=== PATIENT | female | born 1980 | race Caucasian/White ===

== ENCOUNTER 2018-07-26 09:41 | Inpatient (IN) | payer MEDICAID ==
[~2018-07-26] VITALS: Ht 149.9 cm; Wt 76.8 kg
[2018-07-26] MEDS ORDERED: PREN1TAB71 PO (09:49)
[2018-07-26 09:51] VITALS: Ht 149.9 cm; Wt 76.8 kg
--- NOTE | 2018-07-26 11:52 | TRIAGE ---
OB Triage Datetime Report Generated by CPN: 07/26/2018 11:52 Datetime: 07/26/2018 11:48 Stage of : OB Triage Datetime: 07/26/2018 11:18 Stage of : OB Triage Labor Evaluation Frequency: 1-4 Monitor Mode: External Duration (sec)2399: 30-50 Pattern: Normal: <= 5 Contractions in 10 Minutes Resting Tone [place]: Relaxed Heart Rate FHR Baseline Rate: 140 Monitor Mode: External US Variability: Moderate 6-25 bpm Accelerations: 15X15 Decelerations: None Category: Category I Pain Presence: None/Denies Pain Type: N/A Datetime: 07/26/2018 10:55 Comments: BACK ON MONITOR Datetime: 07/26/2018 10:28 Comments: US AT BEDSIDE Datetime: 07/26/2018 10:00 Vaginal Exam Dilatation (cms): 3.0 Effacement (%): 80 Station: -2 Exam By: SMicheline ALBERTO Datetime: 07/26/2018 09:55 Stage of : OB Triage Assessment Type: Triage Maternal Assessment Level of Consciousness: Fully Conscious DTR's/Clonus: DTRs 2+; No Clonus Headache: Denies Blurred Vision: No Respiratory Effort: Unlabored; Regular Rhythm; Equal Expansion Breath Sounds, Left: Clear and Equal Breath Sounds, Right: Clear and Equal Nausea/Vomiting: Denies RUQ Epigastric Pain: Denies Lower Extremities Edema: None Degree: None Upper Extremities Edema: None Degree: None Facial Edema: None Temperature Route: Oral Fall Risk Assessment History of Falling: (0) No Secondary Diagnosis: (0) No Ambulatory Aid: (0) Bedrest/Nurse Assist IV Therapy: (0) No Gait: (0) Normal/Bedrest/Immobile Mental Status: (0) Oriented to Own Ability Fall Score: 0 Fall Risk Score Definition: No Risk: No action required Monitor Mode: External Monitor Mode: External US Pain Assessment Pain Scale: 0 Pain Presence: None/Denies Pain Type: N/A Datetime: 07/26/2018 09:53 Time of Arrival: 07/26/2018 09:40 EGA: 40.1 Arrived By: Ambulatory Arrived From: Home Chief Complaint: CAME WITH ORDERS NST BPP Movement: Present Contractions: Denies/Absent Rupture of Membranes: Denies Vaginal Bleeding: None Vaginal Discharge: Denies Recent Sexual Intercouse: Denies Abdominal Trauma: Not Applicable Patient Complaints: None Time Provider Notified: 07/26/2018 11:45 Provider Notified: dr. bahena Initial Plan: NST, BPP, HAIM POWERE
[2018-07-26] MEDS ORDERED: BUTORPHANOL 2 MG INJ IV PRN ×2 (12:00)
[2018-07-26] MEDS ORDERED: OXYTOCIN 30 UNITS/LR 500 ML IV SCH ×3 (12:00)
[2018-07-26] MEDS ORDERED: OXYTOCIN 30 UNITS/LR 500 ML IV PRN (12:00)
[2018-07-26] MEDS ORDERED: METHYLERGONOVINE 0.2 MG INJ IM PRN (12:00)
[2018-07-26] MEDS ORDERED: MISOPROSTOL 200 MCG TAB PR PRN (12:00)
[2018-07-26] MEDS ORDERED: LIDOCAINE 1% (MPF) 30 ML INJ INJ PRN (12:00)
[2018-07-26] MEDS ORDERED: CARBOPROST 250 MCG INJ IM PRN (12:00)
--- NOTE | 2018-07-26 12:24 | HP ---
Date/Time of Note Date/Time of Note DATE: 07/26/18 TIME: 12:20 OB - History Hx of Present Free Text/Dictation Patient is a 37-year-old 2 para 1 at 40 weeks and 1 day of gestation with estimated date of delivery July 25, 2018 Patient presents for NST and BPP for postdates She reports positive movement, denies any vaginal bleeding or leaking fluid She reports positive uterine contractions GBS status is negative Estimated Due Date: July 25, 2018 : 2 Para: 1 Care: None Obstetrical Complications: None Medical Complications: None Past Family/Social History * Past Medical, Surgical, Family and Obstetric Histories reviewed from chart. OB Admission Exam Vital Signs Vital Signs Vital Signs Date Temp Pulse Resp B/P (MAP) Pulse Ox O2 O2 Flow FiO2 Time Delivery Rate 07/26/18 Room Air 09:51 Physical Exam HEENT: WNL Heart: Rhythm Normal Lungs: Clear, Equal Abdomen: WNL Extremities: Normal Reflexes: Normal Cervical Dilatation: 3cm Effacement: 75% Station: -2 Membranes: Intact Heart Rate: 140's Accelerations: Accelerations Present Decelerations: No Decelerations Varibility: Moderate Contractions on Admission: < 5 Minutes Apart Intensity: Moderate Last 72 hours Lab Results Ordering MD: PAOT KNOX MD Location: [facility] Room/Bed: PROCEDURE: US OB biophysical profile. CLINICAL INDICATION: decreased movements, contractions TECHNIQUE: Multiple sonographic images of the pelvis were obtained. The images were reviewed on a PACS workstation. COMPARISON: No prior studies are available for comparison. FINDINGS: There is a single live intrauterine gestation. Cardiac activity is present with 144 beats per minute. There is a vertex presentation. The placenta is fundal. There is no evidence of placental abruption. SARAH = 6.3 cm. Biophysical profile: movement 2/2 tone 2/2. breathing 2/2 SARAH 2/2 Total 10/23 RPTAT: AA . IMPRESSION: Normal biophysical profile. Oligohydramnios. . .Rj Miller MD, Date Time Electronically viewed and signed by .Rj Miller MD, on 07/26/2018 11:20 .S/ CC: PATO KNOX [phone] PROCEDURE: US OB. CLINICAL INDICATION: Size and dates , contractions TECHNIQUE: Multiple sonographic images of the pelvis and gravid uterus were obtained. The images were reviewed on a PACS workstation. COMPARISON: No prior studies are available for comparison. FINDINGS: Gestation: Single live intrauterine gestation. Cardiac activity: 144 beats per minute. Presentation: Vertex. Placenta: Location: Fundal Appearance: No previa or abruption. Measurements: BPD = 9.0 cm, 36 weeks and 3 days HC = 31.8 cm, 35 weeks and 5 days AC = 36.1 cm, 40 weeks and 0 days FL = 7.6 cm, 38 weeks and 6 days Gestational Age: AUA estimated gestational age: 37 weeks 5 days LMP estimated gestational age: 40 weeks 1 day AUA estimated date of delivery: 08/11/18 The EFW = 3591 g, 45%ile based on LMP age. RPTAT: AA IMPRESSION: Single live intrauterine gestation of 37 weeks 5 days by ultrasound criteria. .Rj Miller MD, Date Time Electronically viewed and signed by .Rj Miller MD, on 07/26/2018 11:20 .S/ CC: PATO KNOX [phone] OB Assessment/Plan Reason for admission: active labor Induction Method: per Pitocin Protocol Other plan: Admit to labor and delivery Oxytocin augmentation Pain meds as needed Copies To: CC: PATO KNOX ; MATHIEU CASTELLANO MD July 26, 2018 12:24
[2018-07-26] MEDS: LACTATED RINGER'S 1,000 ML IV SCH ×2 (12:35→20:51)
[2018-07-27] MEDS ORDERED: OXYTOCIN 30 UNITS/LR 500 ML IV SCH (01:19)
[2018-07-27] MEDS ORDERED: LACTATED RINGER'S 1,000 ML IV* SCH (01:19)
[2018-07-27] MEDS ORDERED: MISOPROSTOL 200 MCG TAB PR PRN (01:30)
[2018-07-27] MEDS ORDERED: ACETAMINOPHEN 325 MG TAB PO PRN ×2 (01:30)
[2018-07-27] MEDS ORDERED: OXYTOCIN 30 UNITS/LR 500 ML IV PRN (01:30)
[2018-07-27] MEDS ORDERED: LANOLIN HPA 1 PKT TOP PRN (01:30)
[2018-07-27] MEDS ORDERED: BENZOCAINE 20% 56 ML SPRAY TOP PRN (01:30)
[2018-07-27] MEDS ORDERED: DIBUCAINE 1% 30 GM OINT TOP PRN (01:30)
[2018-07-27] MEDS ORDERED: SENNA/DOCUSATE NA (8.6MG/50MG) TAB PO PRN (01:30)
[2018-07-27] MEDS ORDERED: CARBOPROST 250 MCG INJ IM PRN (01:30)
[2018-07-27] MEDS ORDERED: MAGNESIUM HYDROXIDE 30ML CUP PO PRN (01:30)
[2018-07-27] MEDS ORDERED: CEFAZOLIN 2 GM/50 ML (PMX) 50 ML IVPB ONE (01:30)
[2018-07-27] MEDS ORDERED: WITCH HAZEL/GLYCERIN PAD PR PRN (01:30)
[2018-07-27] MEDS ORDERED: ONDANSETRON 4 MG INJ IV PRN (01:30)
[2018-07-27] MEDS ORDERED: METHYLERGONOVINE 0.2 MG INJ IM PRN (01:30)
[2018-07-27 02:45] VITALS: BP 126/64; PULSE 80; RESP 18
[2018-07-27] MEDS: LACTATED RINGER'S 1,000 ML IV SCH (03:46)
[2018-07-27 08:00] VITALS: BP 112/62; PULSE 94; RESP 18
--- NOTE | 2018-07-27 10:27 | PN ---
Date/Time of Note Date/Time of Note DATE: 07/27/18 TIME: 10:24 OB Subjective Subjective Subjective PPD# 0 Patient is doing well. She denies nausea, vomiting, shortness of breath, chest pain, headache. She has been ambulating without difficulty, tolerating regular diet. Pain is well controlled on current medications. She is complaining of pain on right inguinal area OB Objective Objective Objective VS - Last 72 Hours, by Label Date Temp Pulse Resp B/P (MAP) Pulse Ox O2 O2 Flow FiO2 Time Delivery Rate 07/27/18 98.9 80 18 126/64 Room Air 02:45 (84) 07/26/18 Room Air 09:51 General: AAO X 3, comfortable, NAD, appropriate mood and affect. ABD: +BS. Soft, non-tender. Uterus 2 cm below umbilicus Flank: No CVA tenderness (B/L) LE: Mild edema. No clubbing, cyanosis, thigh or calf tenderness (B/L). Homans 'sign is negative OB Assessment/Plan Other plan: 37 years old 2 para 2-0-0-2 s/p normal vaginal delivery at 40 weeks and 1 day. PPD#0 - AF, VSS - Baby is doing well, at bed side. She is bonding well - Contraception methods with R/B/A/FR discussed - Continue care - Right inguinal pain, could be positional. Observe her closely PATO KNOX July 27, 2018 10:27
[2018-07-27] MEDS: IBUPROFEN 600 MG TAB PO PRN ×2 (11:20→17:39)
--- NOTE | 2018-07-27 11:25 | LDN ---
Date/Time of Note Date/Time of Note DATE: 07/27/18 TIME: 11:24 Delivery Summary Weeks of Gestation Term gestation Placenta Delivered: Spontaneously Meconium: none Episiotomy: No Laceration repair: First-degree laceration repaired with 2-0 Vicryl suture Anesthesia type: Local Estimated blood loss: 400 Sponge & Needle done & correct: Yes All needle counts correct: Yes Any foreign bodies felt in the: No Delivery Information Sex Sex: female Apgars 1 Minute: 8 5 Minute: 9 Suctioning Nose & mouth suctioned at darvin: Yes Delee suction performed: No Umbilical Cord Umbilical cord with: 3 Vessels Cord presentations: no nuchal cord Cord Blood was obtained: Yes Mother & Baby Disposition Disposition Baby's weight 7 pounds 5 ounces/ 3330 g Patient received Cytotec 1000 mcg per rectum and Ancef 2 g IV x1 dose Copies To: CC: PATO KNOX BAHAREH MD July 27, 2018 11:25
[2018-07-27 12:00] VITALS: BP 110/60; PULSE 83; RESP 16
[2018-07-27 16:00] VITALS: BP 114/64; PULSE 84; RESP 19
[2018-07-27 20:30] VITALS: BP 109/57; PULSE 81; RESP 18
[2018-07-28] MEDS: IBUPROFEN 600 MG TAB PO PRN ×4 (00:28→23:41)
[2018-07-28 04:00] VITALS: BP 110/62; PULSE 70; RESP 17
[2018-07-28 08:00] VITALS: BP 106/57; PULSE 51; RESP 19
--- NOTE | 2018-07-28 15:47 | QN ---
Documentation Comment day #1 Status post Patient stable and afebrile Vital signs stable VS - Last 72 Hours, by Label Date Temp Pulse Resp B/P (MAP) Pulse Ox O2 O2 Flow FiO2 Time Delivery Rate 07/28/18 97.6 51 19 106/57 Room Air 08:00 (73) 07/28/18 98.0 70 17 110/62 Room Air 04:00 (78) 07/27/18 99.1 81 18 109/57 Room Air 20:30 (74) 07/27/18 98.5 84 19 114/64 Room Air 16:00 (81) 07/27/18 98.4 83 16 110/60 Room Air 12:00 (77) 07/27/18 99.3 94 18 112/62 Room Air 08:00 (79) 07/27/18 98.9 80 18 126/64 Room Air 02:45 (84) 07/26/18 Room Air 09:51 Hematology - 72 Hrs Test 07/26/18 12:40 07/28/18 07:26 Hematocrit 37.3 % (37.0-47.0) 32.1 % (37.0-47.0) L Hemoglobin 12.7 g/dl (12.0-16.0) 10.8 g/dl (12.0-16.0) L Mean Corpuscular 29.7 pg (29.0-33.0) 29.6 pg (29.0-33.0) Hemoglobin Mean Corpuscular 34.0 g/dl (32.0-37.0) 33.6 g/dl (32.0-37.0) Hemoglobin Concent Mean Corpuscular Volume 87.4 fl (82.0-101.0) 87.9 fl (82.0-101.0) Mean Platelet Volume 9.1 fl (7.4-10.4) 9.4 fl (7.4-10.4) Platelet Count 358 10^3/UL (140-415) 324 10^3/UL (140-415) Red Blood Count 4.27 10^6/ul (4.20-5.40) 3.65 10^6/ul (4.20-5.40) L Red Cell Distribution 13.2 % (11.5-14.5) 13.6 % (11.5-14.5) Width White Blood Count 9.7 10^3/ul (4.8-10.8) 9.9 10^3/ul (4.8-10.8) Abdomen soft, fundus firm Perineum intact Extremities nontender Assessment and plan Patient stable and doing well Continue with routine care MATHIEU CASTELLANO MD July 28, 2018 15:47
[2018-07-28 16:00] VITALS: BP 112/55; PULSE 81; RESP 20
[2018-07-28 20:45] VITALS: BP 124/76; PULSE 87; RESP 18
[2018-07-29 03:59] VITALS: BP 102/55; PULSE 90; RESP 18
[2018-07-29] MEDS: IBUPROFEN 600 MG TAB PO PRN (05:48)
[2018-07-29 07:45] VITALS: BP 112/70; PULSE 85; RESP 16
--- NOTE | 2018-07-30 16:28 | DELSUM ---
Delivery Summary A-C Datetime Report Generated by CPN: 07/30/2018 16:28 DELIVERY PERSONNEL Behavioral Health Worker: ZiggyafrenMarlin carpenteryce MATERNAL INFORMATION Delivery Anesthesia: Local Medications in Delivery: LR 500 + 30 units pitocin Delivery QBL (ml): 400 Placenta Cultured: No Maternal Complications: Other Other Maternal Complications: Suspected placental abruption, LABOR SUMMARY EDC: 07/25/2018 00:00 No. Babies in Womb: 1 Attempted: No Labor Anesthesia: None LABOR INFORMATION Reason for Induction: Not Applicable Onset of Labor: 07/26/2018 12:00 Complete Dilatation: 07/27/2018 00:25 Other Ripening Agents: N/A Oxytocin: Augmentation Group B Beta Strep: Negative Antibiotics # of Doses: 0 Steroids Given: None Reason Steroids Not Administered: Not Applicable MEMBRANES Membranes Rupture Method: Artificial Rupture of Membranes: 07/27/2018 00:45 Length of Rupture (hr): 0.07 Amniotic Fluid Color: Clear Amniotic Fluid Amount: Moderate Amniotic Fluid Odor: Normal STAGES OF LABOR Stage 1 hr: 12 Stage 1 min: 25 Stage 2 hr: 0 Stage 2 min: 24 Stage 3 hr: 0 Stage 3 min: 2 Total Time in Labor hr: 12 Total Time in Labor min: 51 VAGINAL DELIVERY Episiotomy: None Laceration Extension: First Degree Laceration Type: Perineal Laceration Repair: Yes Initial Vag Sponge Count: 10 Final Vag Sponge Count: 10 Initial Vag Sharps Count: 3 Final Vag Sharps Count: 3 Sponge Count Correct: Yes; Vaginal Sweep Performed Sharps Count Correct: Yes BABY A INFORMATION Infant Delivery Date/Time: 07/27/2018 00:49 Method of Delivery: Vaginal Born in Route : No (Annotations: Data stored by [facility] on behalf of user) : N/A Forceps: N/A Vacuum Extraction: N/A Shoulder Dystocia : N/A SHOULDER DYSTOCIA BABY A Infant Delivery Date/Time: 07/27/2018 00:49 PRESENTATION/POSITION BABY A Presentation: Cephalic Cephalic Presentation: Vertex (Annotations: Data stored by N on behalf of user) Vertex Position: Left Occipital Anterior Breech Presentation: N/A PLACENTA INFORMATION BABY A Placenta Delivery Time : 07/27/2018 00:51 Placenta Method of Delivery: Spontaneous Placenta Status: Delivered SCORES BABY A Heart Rate 1 min: >100 bpm Resp Effort 1 min: Good Cry Reflex Irritability 1 min: Cough/Sneeze/Pulls Away Muscle Tone 1 min: Active Motion Color 1 min: Blue/Pale Resuscitation Effort 1 min: Tactile Stimulation SCORE 1 MIN: 8 Heart Rate 5 min: >100 bpm Resp Effort 5 min: Good Cry Reflex Irritability 5 min: Cough/Sneeze/Pulls Away Muscle Tone 5 min: Active Motion Color 5 min: Body [place], Extremit Blue Resuscitation Effort 5 min: Tactile Stimulation SCORE 5 MIN: 9 INFANT INFORMATION BABY A Gestational Age at Delivery: 40.2 Gestational Status: Full Term- 39- 40.6 Weeks Outcome : Liveborn (Annotations: Data stored by [facility] on behalf of user) Condition : Stable Infant Sex: Female IDENTIFICATION/MEDS BABY A ID Band Number: [id number] ID Band Location: Right Leg; Left Arm Sensor Applied: Yes Sensor Number: [id number] Sensor Location : Cord Clamp Vitamin K Given : Not Given Erythromycin Given: Not Given WEIGHT/LENGTH BABY A Infant Birthweight (gm): 3330 Weight (lb): 7 Weight (oz): 5 Length (in): 20.00 Infant Length (cm): 50.80 CORD INFORMATION BABY A No. Cord Vessels: 3 Nuchal Cord : N/A Nuchal Cord- Other: 0 True Knot: 0 Cord Blood Taken: Yes Banking/Donate Info: No Suction: Mouth; Nose ASSESSMENT BABY A Infant Complications: None Physical Findings at Delivery: Within Normal Limits Respirations: Appears Normal Cooking Casing And Drying Supervisor/ALS Called : No Care By: WEB SITE SPECIALISTKaitlin Duran RN Transferred To: Remains with Mother
== END 2018-07-29 16:28 | disposition home or self-care (01) | DRG 807 ==
LOC: OBT 09:41 → L-D 09:42 → OBT 11:40 → L-D 11:40 → PP1 07-27 02:39
PROVIDERS: ADMIT Obstetrics & Gynecology; ATTEND Obstetrics & Gynecology
PROC: 10E0XZZ Delivery of Products of Conception, External Approach (ICD-10-PCS; principal; 2018-07-27)
PROC: 0HQ9XZZ Repair Perineum Skin, External Approach (ICD-10-PCS; 2018-07-27)
DX: O48.0 Post-term pregnancy (principal); O70.0 First degree perineal laceration during delivery; Z37.0 Single live birth; Z3A.40 40 weeks gestation of pregnancy
CPT/HCPCS: 76816; 76818; 85025; 85610; 85730; 86592; 86850; 86900; 86901; 87340; 88307; G0463; J0690; J2590; J7120